=== PATIENT | female | born 1950 | race Asian ===

== ENCOUNTER → 2016-08-19 | Outpatient (CLI) | payer OTHER ==
--- NOTE | 2016-08-19 16:41 | MAMMOGRAPHY REPORT ---
BILATERAL DIGITAL SCREENING MAMMOGRAM TOMOSYNTHESIS WITH CAD: 08/19/2016 CLINICAL HISTORY: Routine screening. Patient has no complaints. TECHNIQUE: Breast tomosynthesis in addition to standard 2D mammography was performed. Current study was also evaluated with a Computer Aided Detection (CAD) system. COMPARISON: Comparison is made to exams dated: 07/15/2011 mammogram and 06/12/2010 mammogram - [facility]. BREAST COMPOSITION: The tissue of both breasts is heterogeneously dense, which may obscure small ma sses. FINDINGS: No suspicious masses, calcifications, or areas of architectural distortion are noted in e ither breast. There has been no significant interval change compared to prior exams. IMPRESSION: ACR BI-RADS CATEGORY 1: NEGATIVE There is no mammographic evidence of malignancy. A 1 year screening mammogram is recommended. The p atient will receive written notification of the results. Approximately 10% of breast cancers are not detected with mammography. A negative mammographic repor t should not delay biopsy if a clinically suggestive mass is present. Sparkle Peña M.D. ah/:08/19/2016 15:47:03 Hvac Maintenance Technician: Irlanda HINES(R)(M), [facility] letter sent: Normal 1/2 BI-RADS Code: ACR BI-RADS Category 1: Negative
== END | disposition home or self-care (01) ==
LOC: C.MAMM 15:19
PROVIDERS: ATTEND Family Medicine
DX: Z12.31 Encounter for screening mammogram for malignant neoplasm of breast (principal); M81.0 Age-related osteoporosis without current pathological fracture; M85.80 Other specified disorders of bone density and structure, unspecified site; Z78.0 Asymptomatic menopausal state

== ENCOUNTER → 2016-09-08 | Outpatient (CLI) | payer OTHER | END | disposition home or self-care (01) | LOC: C.PATHSPEC 16:53 | PROVIDERS: ATTEND Obstetrics & Gynecology | DX: R87.612 Low grade squamous intraepithelial lesion on cytologic smear of cervix (LGSIL) (principal); R87.613 High grade squamous intraepithelial lesion on cytologic smear of cervix (HGSIL) ==

== ENCOUNTER → 2016-11-11 | Day surgery (SDC) | payer OTHER ==
[2016-10-07 13:46] VITALS: Ht 160 cm; Wt 57.7 kg
[2016-10-14 10:20] LABS: BASO % 0.8 %; BASO ABS # 0.03 K/uL (0-0.2); COMPLETE YES; EOS % 2.8 %; HEMATOCRIT 40.5 % (37-47); IG% 0.3 %; LYMPH % 43.4 %; LYMPH ABS # 1.68 K/uL (1.2-3.4); MEAN CELL VOLUME 99.3 fL (80-100); MEAN CORPUSCULAR HEMOGLOBIN 33.1 pg (25-34); MEAN CORPUSCULAR HGB CONC 33.3 g/dl (32-36); MEAN PLATELET VOLUME 11.5 fL (7.4-10.4); MONO % 6.5 %; NEUT % 46.2 %; PLATELET COUNT 158 K/uL (130-400); RED BLOOD COUNT 4.08 M/uL (4.2-5.4); WHITE BLOOD COUNT 3.87 K/uL (4.8-10.8)
--- NOTE | 2016-10-14 11:11 | HISTORY & PHYSICAL EXAMINATION ---
DATE OF ADMISSION: 11/11/2016 ADMITTING DIAGNOSES: 1. Atypical squamous cells of unknown significance, cannot rule out high-grade dysplasia. 2. Inadequate colposcopy. 3. Positive endocervical curettage. ADMISSION HISTORY: The patient is a 66-year-old G1, P1, postmenopausal female who is admitted for cold knife cone biopsy of the cervix for atypical squamous cells of unknown significance, cannot rule out high-grade dysplasia. The patient was referred to me by her primary care provider after she had the ASCUS, cannot rule out high-grade Pap. She had a colposcopy in the office which was inadequate along with an endocervical curettage. 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 PAST MEDICAL HISTORY: OBSTETRICS: x1. GYNECOLOGIC: As above. MEDICAL: None. SURGICAL: None. ALLERGIES: No known drug allergies. SOCIAL HISTORY: No smoking. FAMILY HISTORY: Noncontributory. REVIEW OF SYSTEMS: As per HPI. ADMISSION PHYSICAL EXAMINATION: GENERAL: Shows a pleasant female in no acute distress. VITAL SIGNS: Blood pressure 132/86, height of 5 feet 3 inches, weight 128 pounds. HEENT: Unremarkable. NECK: Supple. LUNGS: Clear. HEART: With a regular rhythm and rate. ABDOMEN: Soft, nontender. PELVIC: Shows atrophic external genitalia. The vaginal vault is pale. The cervix is multiparous, closed, and atrophic. Bimanual examination shows a small anterior uterus. The adnexa show no palpable masses. RECTAL: Confirmatory. EXTREMITIES: No deep calf tenderness. NEUROLOGIC: Grossly intact. IMPRESSION: A 66-year-old G1, P1, postmenopausal female, atypical squamous cells, cannot rule out high-grade dysplasia with inadequate colposcopy for cone biopsy. PLAN: The risks, benefits and alternatives to the surgery have been discussed. While the benefits will be removal of the precancerous tissue, the risks are bleeding, infection and failure to diagnose and/or treat the problem. The patient's daughter is serving as a rolls mill operator for the visit today. All questions answered of the patient through the rolls mill operator. Permit has been signed and she wishes to proceed.
[~2016-11-11] VITALS: Ht 160 cm; Wt 57.7 kg
[~2016-11-11] MED LIST: ATROPINE SULFATE 0.1 MG/ML 5ML SYR IV PRN; DEXAMETHASONE SOD INJ 4 MG/ML VIAL ONE; EpHEDrine SULFATE INJ 50 MG/ML AMP IV PRN; FENTANYL CITRATE INJ 50 MCG/1 ML 2 ML VIAL IV PRN; FENTANYL CITRATE INJ 50 MCG/1 ML 2 ML VIAL ONE; FERRIC SUBSULFATE 8 GM VIAL ONE; FLUMAZENIL 0.1 MG/1 ML 10 ML VIAL IV PRN; GELATIN SPONGE 12-7MM ONE; IBUPROFEN 600 MG TAB PO PRN; IODINE SOLN STRONG 14 ML ONE; KETOROLAC TROMETHAMINE 30 MG/ML VIAL IV. PRN; KETOROLAC TROMETHAMINE 30 MG/ML VIAL ONE; LABETALOL HCL IV 5 MG/ML 20ML IV PRN; LIDOCAINE HCL 2% 2 ML VIAL (20MG/ML) ONE; MIDAZOLAM HCL 1 MG/ML 2ML VIAL ONE; NALOXONE HCL 0.4 MG/1 ML VIAL/CARP IV PRN; ONDANSETRON INJ 2 MG/ML 2 ML VIAL IV PRN; ONDANSETRON INJ 2 MG/ML 2 ML VIAL ONE; PROMETHAZINE HCL INJ 12.5 MG in SODIUM CHLORIDE 0.9% 50ML 50 ML IV PRN; PROPOFOL IV EMULSION 10 MG/ML 20 ML VIAL IV ONE; SODIUM CHLORIDE 0.9% 1000ML 1,000 ML IV SCH; VASOPRESSIN 20 UNIT/ML VIAL ONE
[2016-11-11] MEDS: LACTATED RINGER'S 1000ML 1,000 ML IV SCH ×2 (06:49→08:00)
--- NOTE | 2016-11-11 07:04 | History & Physical Bridge - SC ---
H&P Re-Evaluation Bridge Note: I have examined the patient, reviewed the History & Physical and in the interval since the performance of the History & Physical I have noted the following changes of clinical significance: No changes noted
--- NOTE | 2016-11-11 07:32 | [facility] Post Operative Brief Note ---
Immediate Operative Summary Operative Date Nov 11, 2016. Pre-Operative Diagnosis 1) ASCUS, cannot r/o HGSIL 2) (+) ECC Post-Operative Diagnosis same Procedure(s) Performed 1) Cold Knife Cone BX 2) ECC Surgeon Tobi Assistant Paralegal Surgeon(s) None Estimated Blood Loss Minimal Findings Cone bx, tagged at 12 o'clock, ECC sent as separate specimen Fluids (cc crystalloids) 700 Specimens 1) Cone Bx 2) ECC Drains None Anesthesia General Complication(s) None Disposition Recovery Room / PACU
--- NOTE | 2016-11-11 07:35 | Discharge Instructions-SurgCtr ---
Discharge Instructions Date of Service Nov 11, 2016. Visit Reason for Visit: Atypical Squamous Cells Cannot Exclude High Grade Discharge Discharge Diagnosis / Problem: same Discharge Goals Goal(s): Therapeutic intervention Activity Recommendations Activity Limitations: as noted below Anesthesia . Post Anesthesia Instructions: If you have had General Anesthesia or IV Sedation: * Do not drive today. * Resume driving when surgeon permits. * Do not make important decisions or sign legal documents today. * Call surgeon for: 1. Temperature elevations greater than 101 degrees F. 2. Uncontrollable pain. 3. Excessive bleeding. 4. Persistent nausea and vomiting. 5. Medication intolerance (nausea, vomiting or rash). * For nausea and vomiting use only clear liquids such as: tea, soda, bouillon until nausea subsides, then gradually increase diet as tolerated. * If you have any concerns or questions, call your surgeon's office. If physician is unavailable and it is an emergency, call 911 or go to the nearest emergency room. . Instructions / Follow-Up Instructions / Follow-Up ACTIVITY RECOMMENDATIONS: * Avoid tampons, douching, hot tubs, pools, and intercourse until bleeding has stopped. * May shower as usual. * No strenuous activity for 24-48 hours. After 24-48 hours, you may do anything you feel like doing (driving and sports are okay). SPECIAL CARE INSTRUCTIONS: Special Diet: * Mild nausea may occur in the immediate post-operative period. * Take clear liquids such as tea, cola or bouillon until all nausea has subsided; you may then resume your normal diet. Special Care: * Light bleeding and vaginal spotting can last from a few days to 3-4 weeks. Call your doctor if bleeding becomes heavier than the heaviest part of your period. * Check your temperature twice a day for one week. If it goes above 100.4 degrees Fahrenheit (38.0 Celsius), notify your doctor. * Call your doctor's office for an appointment for 6 weeks after your surgery. FOLLOW-UP VISIT: Call your doctor's office for an appointment for 2 weeks after your surgery. Diet Recommendations Home Diet: resume previous diet Procedures Procedures Performed: Cold Knife Cone Bx ECC Pending Studies Studies pending at discharge: yes List of pending studies: Pathology from procedure Medical Emergencies . Who to Call and When: Medical Emergencies: If at any time you feel your situation is an emergency, please call 911 immediately. . Non-Emergent Contact Non-Emergency issues call your: [employer] Call Non-Emergent contact if: you have a fever, temperature is above 100.5 . . "Provider Documentation" section prepared by Sanchez Britton. . [place] Drug Monitoring Program Search Results: patient reviewed within database, no issues identified
--- NOTE | 2016-11-11 07:50 | OPERATIVE REPORT ---
DATE OF OPERATION: 11/11/2016 PREOPERATIVE DIAGNOSES: 1. Atypical squamous cells of unknown significance, cannot rule out high grade dysplasia. 2. Positive endocervical curettage. POSTOPERATIVE DIAGNOSIS: Same. PROCEDURE PERFORMED: 1. Cold knife cone biopsy. 2. Endocervical curettage. SURGEON: Dr. Britton. ANESTHESIA: General. FINDINGS: Operative findings showed a postmenopausal atrophic multiparous cervical, cone biopsy performed and specimen tagged at 12 o'clock. Endocervical curettage performed and sent as separate pathological specimen. PROCEDURE IN DETAIL: The patient was taken to the operating room and after general anesthesia was placed in dorsolithotomy position and draped and prepped in the usual fashion. Bladder was drained of any residual urine. Allis forceps were used to grasp the cervix at 12 o'clock. Cervical stay sutures were placed with 0 Vicryl at 9 and 3 o'clock and tagged for the procedure. The cervix was injected with a diluted Pitressin solution. Cold knife cone biopsy was then performed to a depth of 2 cm, specimen was tagged at 12 o'clock. Endocervical curettage was performed. Raw cone bed was cauterized and a piece of Gelfoam was placed in the defect. The cervical stay sutures were tied in the midline holding the Gelfoam in place. The patient was taken out of dorsal lithotomy to recovery room in satisfactory condition. I attest to the content of the Intraoperative Record and any orders documented therein. Any exceptio ns are noted below.
[2016-11-11 08:33] VITALS: TEMP 36.2
--- NOTE | 2016-11-11 08:58 | Anesthesia Progress Nt - [facility] ---
Anesthesia Post Op Note Date & Time Nov 11, 2016 at 08:57 Vital Signs Pain Intensity: 0 Vital Signs Past 12 Hours Date Time Temp Pulse Resp B/P Pulse Ox O2 Delivery O2 Flow Rate FiO2 11/11/16 08:33 36.2 60 12 135/83 95 Room Air 11/11/16 08:20 63 15 125/82 98 11/11/16 08:20 36.4 62 15 11/11/16 08:15 62 13 11/11/16 08:15 62 13 130/77 98 11/11/16 08:10 61 17 116/76 100 11/11/16 08:10 61 17 11/11/16 08:05 62 13 120/74 100 11/11/16 08:05 62 13 11/11/16 08:00 66 17 108/73 100 11/11/16 08:00 64 17 11/11/16 07:55 58 18 11/11/16 07:55 61 18 108/67 100 11/11/16 07:50 62 13 11/11/16 07:50 61 13 109/71 100 11/11/16 07:45 65 9 104/76 100 11/11/16 07:45 65 9 11/11/16 07:40 68 19 11/11/16 07:40 67 19 109/72 100 11/11/16 07:36 105/69 11/11/16 07:36 36.4 65 8 105/69 97 Mask 10 11/11/16 06:35 36.8 59 16 151/91 94 Room Air Notes Mental Status: alert / awake / arousable, participated in evaluation Pt Amnestic to Procedure: Yes Nausea / Vomiting: adequately controlled Pain: adequately controlled Airway Patency, RR, SpO2: stable & adequate BP & HR: stable & adequate Hydration State: stable & adequate Anesthetic Complications: no major complications apparent
[2016-11-11 09:09] VITALS: BP 143/83; PULSE 58; O2SAT 96
== END | disposition home or self-care (01) ==
LOC: X.SURG 06:20
PROVIDERS: ATTEND Obstetrics & Gynecology
DX: R87.610 Atypical squamous cells of undetermined significance on cytologic smear of cervix (ASC-US) (principal)

== ENCOUNTER → 2017-06-01 | Outpatient (CLI) | payer OTHER | END | disposition home or self-care (01) | LOC: C.PAPS 09:53 | PROVIDERS: ATTEND Obstetrics & Gynecology | DX: R87.621 Atypical squamous cells cannot exclude high grade squamous intraepithelial lesion on cytologic smear of vagina (ASC-H) (principal) ==

== ENCOUNTER → 2017-11-08 | Outpatient (CLI) | payer OTHER ==
--- NOTE | 2017-11-08 10:26 | DIAGNOSTIC IMAGING REPORT ---
PELVIC ULTRASOUND, TRANSABDOMINAL HISTORY: Pelvic pain. COMPARISON: None. FINDINGS: The patient deferred transvaginal scanning. Uterus: 5.8 x 3.2 x 2.0 cm. No uterine masses. Endometrial stripe: 2 mm in thickness. Right ovary: Normal in size and demonstrates normal color flow. Left ovary: Normal in size and demonstrates normal color flow. Miscellaneous:No pelvic free fluid. IMPRESSION: No significant abnormality identified within the pelvis. Electronically signed by: Danny Rendon M.D. 11/08/2017 10:25 AM Dictated Date/Time: 11/08/2017 10:24 AM
--- NOTE | 2017-11-08 10:27 | DIAGNOSTIC IMAGING REPORT ---
ABDOMEN COMPLETE (US) CLINICAL HISTORY: 67 years-old Female presenting with ABD Pain, bloating. TECHNIQUE: Real-time grayscale and limited color Doppler ultrasound imaging of the abdomen was performed. COMPARISON: 07/11/2012. FINDINGS: Pancreas: Visualized portions of the pancreatic head and body normal. Liver: Normal echogenicity and echotexture. Redemonstration of multifocal multilobular anechoic lesions throughout the liver compatible with hepatic cysts. Biliary: No intrahepatic biliary ductal dilatation. Common bile duct measures up to 5 mm in diameter. Gallbladder: No evidence of gallstones, gallbladder wall thickening, gallbladder distention, or pericholecystic fluid or inflammatory change. Spleen: Normal in echogenicity and size, measuring 8.2 cm in length. Kidneys: Multiple anechoic well-defined small lesions consistent with simple cysts. Right kidney measures 10.6 cm, and left kidney measures 11.0 cm. No hydronephrosis. Vasculature: Visualized portions of the IVC and abdominal aorta normal. Ascites: None. IMPRESSION: 1. No cholelithiasis or biliary ductal dilatation. 2. Redemonstration of polycystic liver disease. 3. Multiple small renal cysts. No hydronephrosis. Electronically signed by: Ibrahima Almazan M.D. 11/08/2017 10:26 AM Dictated Date/Time: 11/08/2017 10:23 AM
== END | disposition home or self-care (01) ==
LOC: C.ULTRBC 09:18
PROVIDERS: ATTEND Family Medicine
DX: R10.9 Unspecified abdominal pain (principal)